=== PATIENT | male | born 1980 | race Caucasian/White ===

== ENCOUNTER 2021-06-23 14:39 | Emergency (ER) | payer SELFPAY ==
--- NOTE | 2021-06-23 15:51 | CR ---
Indication: Pain Comparison: Rolled ankle Technique: AP, Lateral, and Oblique views right ankle were obtained Findings: There is no displaced fracture or dislocation. The ankle mortise is symmetrical. The talar dome is smooth and intact. The joint spaces are otherwise grossly preserved. There is marked lateral malleolar soft tissue swelling. Impression: Marked lateral malleolar soft tissue swelling without evidence of displaced fracture. Dictated by Robin Milligan MD @ 06/23/2021 3:50:05 PM (Electronically Signed)
[2021-06-23] MEDS ORDERED: Ketorolac 60 MG/2 ML SDV IM ONE (16:25)
[2021-06-23] MEDS ORDERED: Acetaminophen/HYDROcodone 325-5 MG Tab PO ONE (17:16)
--- NOTE | 2021-06-23 17:22 | EDM.PDOC ---
ED HPI GENERAL MEDICAL PROBLEM - General Chief Complaint: Lower Extremity Injury/Pain Stated Complaint: RIGHT ANKLE INJURY Time Seen by Provider: 06/23/21 16:59 Source of Information: Reports: Patient History Limitations: Reports: No Limitations - History of Present Illness INITIAL COMMENTS - FREE TEXT/NARRATIVE: HISTORY AND PHYSICAL: History of present illness: Patient is a 41-year-old male who presents emergency room today with concern of right ankle injury that occurred just prior to arrival to the emergency room. Patient states that he was getting out of his vehicle when he "stepped funny "and twisted his right ankle and hurt the outside of his right ankle. Patient states he did feel a popping sensation of his outer right ankle and states that since then, he has not been able to walk on his ankle due to pain. Patient states he has not taken anything for his symptoms. Patient denies any head injury or loss of consciousness or any other resuscitative symptoms. Patient denies fever, chills, chest pain, shortness of breath, or cough. Denies headache, neck stiff ness, change in vision, syncope, or near syncope. Denies nausea, vomiting, abdominal pain, diarrhea, constipation, or dysuria. Has not noted any blood in urine or stool. Patient has been eating and drinking appropriately. Review of systems: As per history of present illness and below otherwise all systems reviewed and negative. Past medical history: As per history of present illness and as reviewed below otherwise noncontributory. Surgical history: As per history of present illness and as reviewed below otherwise noncontributory. Social history: See social history for further information Family history: As per history of present illness and as reviewed below otherwise noncontrib utory. Physical exam: General: Patient is alert, oriented, and in no acute distress. Patient sitting comfortably on exam table. HEENT: Atraumatic, normocephalic, pupils equal and reactive bilaterally, negative for conjunctival pallor or scleral icterus, mucous membranes moist, throat clear, neck supple, nontender, trachea midline. No drooling or trismus noted. No meningeal signs. No hot potato voice noted. Lungs: Clear to auscultation, breath sounds equal bilaterally, chest nontender. Heart: S1S2, regular rate and rhythm without overt murmur Abdomen: Soft, nondistended, nontender. Negative for masses or hepatosplenomegaly. Negative for costovertebral tenderness. Pelvis: Stable nontender. Genitourinary: Deferred. Rectal: Deferred. Skin: Intact, warm, dry. No lesions or rashes noted. Extremities: The right lateral malleolus is edematous without ecchymosis, erythema. Dorsalis pedis and posterior tibial pulses are grossly intact of the right lower extremity with capillary refill less than 2 seconds. Patient does have significant pain to palpation overlying the lateral malleolus of the right lower extremity. Patient does have full range of motion of the right knee and digits but does have limited range of motion of the right ankle due to pain. All compartments are soft of the right lower extremity. Intact sensation to light and deep touch of the complete right lower extremity. Otherwise, atraumatic, negative for cords or calf pain. Neurovascular unremarkable. Neuro: Awake, alert, oriented. Cranial nerves II through XII unremarkable. Cerebellum unremarkable. Motor and sensory unremarkable throughout. Exam nonfocal. Medical Decision Making: Signs and symptoms are prompt return to the ED thoroughly discussed with patient. Discussed importance for follow-up with a primary care provider and orthopedic provider. Voices understanding and is agreeable to plan of care. Denies any further questions or concerns at this time. Diagnostics: Ankle x-ray, right Therapeutics: Toradol, [place] tab, walking boot, crutches Prescription: Tramadol (#8), diclofenac Impression: Right ankle injury/sprain Plan: 1. Rest, ice, elevate the affected extremity. You can apply ice 15 minutes on, 15 minutes off. Use the ankle immobilizer and crutches until follow-up with an orthopedic provider. 2. Tylenol and/or Ibuprofen (either take diclofenac or ibuprofen and do not mix these medications as they are both NSAID medications. Do not take diclofenac with any additional NSAID mesh medication as discussed.) As directed for pain management or discomfort. Take medication as prescribed. Caution when using this medication as it does cause drowsiness and sedation. Do not take this medication and operate any equipment or drive a vehicle. This medication [facility]. 3. Follow up with the Orthopedic provider as discussed. Return to the ED as needed and as discussed. Definitive disposition and diagnosis as appropriate pending reevaluation and review of above. Right Ankle Pain Score (Numeric/FACES): 9 - Related Data Allergies Allergy/AdvReac Type Severity Reaction Status Date / Time No Known Allergies Allergy Verified 06/23/21 15:50 Home Meds: Home Meds Diclofenac Sodium [Voltaren] 75 mg PO BIDMEALS PRN #15 tab.cr 06/23/21 [Rx] traMADol [Ultram] 50 mg PO Q6H PRN #8 tab 06/23/21 [Rx] Social & Family History - Tobacco Use Second Hand Smoke Exposure: No - Caffeine Use Caffeine Use: Reports: None - Recreational Drug Use Recreational Drug Use: No Review of Systems - Review of Systems Review Of Systems: Comprehensive ROS is negative, except as noted in HPI. ED EXAM, GENERAL - Physical Exam Exam: See Below (See dictation) Course - Vital Signs Last Recorded V/S: Last Vital Signs Temp 98.9 F 06/23/21 15:43 Pulse 104 H 06/23/21 15:43 Resp 20 06/23/21 15:43 BP 143/71 H 06/23/21 15:43 Pulse Ox 96 06/23/21 15:43 - Orders/Labs/Meds Orders: Active Orders 24 hr Category Date Time Status DME for Discharge [COMM] Stat Oth 06/23/21 17:20 Ordered Meds: Medications Discontinued Medications Generic Name Dose Route Start Last Admin Trade Name Freq PRN Reason Stop Dose Admin Hydrocodone Bitart/Acetaminophen 1 tab 06/23/21 17:16 06/23/21 17:34 Acetaminophen/Hydrocodone 325-5 Mg Tab PO 06/23/21 17:17 1 tab ONETIME ONE Administration Ketorolac Tromethamine 60 mg 06/23/21 16:25 06/23/21 16:34 Ketorolac 60 Mg/2 Ml Sdv IM 06/23/21 16:26 60 mg ONETIME ONE Administration Departure - Departure Time of Disposition: 17:21 Disposition: Home, Self-Care 01 Clinical Impression: Right ankle injury - Discharge Information Prescriptions: traMADol [Ultram] 50 mg PO Q6H PRN #8 tab PRN Reason: Pain (Severe 7-10) Diclofenac Sodium [Voltaren] 75 mg PO BIDMEALS PRN #15 tab.cr PRN Reason: Pain Instructions: Ankle Sprain, [id number] Referrals: PCP,Not In Area [Primary Care Provider] - Forms: ED Department Discharge Additional Instructions: The following information is given to patients seen in the emergency department who are being discharged to home. This information is to outline your options for follow-up care. We provide all patients seen in our emergency department with a follow-up referral. The need for follow-up, as well as the timing and circumstances, are variable depending upon the specifics of your emergency department visit. If you don't have a primary care physician on staff, we will provide you with a referral. We always advise you to contact your personal physician following an emergency department visit to inform them of the circumstance of the visit and for follow-up with them and/or the need for any referrals to a consulting specialist. The emergency department will also refer you to a specialist when appropriate. This referral assures that you have the opportunity for follow-up care with a specialist. All of these measure are taken in an effort to provide you with optimal care, which includes your follow-up. Under all circumstances we always encourage you to contact your private physician who remains a resource for coordinating your care. When calling for follow-up care, please make the office aware that this follow-up is from your recent emergency room visit. If for any reason you are refused follow-up, please contact the [facility] Emergency Department at and asked to speak to the emergency department charge nurse. [facility] [address] [place] [id number] [address] [facility] Professional [facility] [address] [place] [address], [address] [place] [address] 1. Rest, ice, elevate the affected extremity. You can apply ice 15 minutes on, 15 minutes off. Use the ankle immobilizer and crutches until follow-up with an orthopedic provider. 2. Tylenol and/or Ibuprofen (either take diclofenac or ibuprofen and do not mix these medications as they are both NSAID medications. Do not take diclofenac with any additional NSAID mesh medication as discussed.) As directed for pain management or discomfort. Take medication as prescribed. Caution when using this medication as it does cause drowsiness and sedation. Do not take this medication and operate any equipment or drive a vehicle. This medication has been sent to and pharmacy. 3. Follow up with the Orthopedic provider as discussed. Return to the ED as needed and as discussed. Sepsis Event Note (ED) - Evaluation Sepsis Screening Result: No Definite Risk - Focused Exam Vital Signs: Vital Signs Temp Pulse Resp BP Pulse Ox 06/23/21 15:43 98.9 F 104 H 20 143/71 H 96 - My Orders Last 24 Hours: My Active Orders 06/23/21 17:20 DME for Discharge [COMM] Stat - Assessment/Plan Last 24 Hours: My Active Orders 06/23/21 17:20 DME for Discharge [COMM] Stat
== END 2021-06-23 17:30 | disposition home or self-care (01) ==
LOC: MW.ED 14:39
DX: S93.401A Sprain of unspecified ligament of right ankle, initial encounter (principal); X50.1XXA Overexertion from prolonged static or awkward postures, initial encounter
CPT/HCPCS: 73610; 96372; 99283; A9270; J1885